=== PATIENT | male | born 1970 | race Caucasian/White ===

== ENCOUNTER 2021-02-01 15:09 | Observation (INO) | payer OTHER ==
[2021-02-01] MEDS ORDERED: SODIUM CHLORIDE 0.9% 500 ML 500 ML IV STA (15:28)
--- NOTE | 2021-02-01 15:38 | ED ---
General Adult HPI - General Source: patient, EMS, RN notes reviewed, old records reviewed Mode of arrival: EMS Limitations: no limitations - History of Present Illness -: hour(s) (21) Location: right, upper extremity Radiation: non-radiation Severity scale (1-10): 0 Consistency: constant Improves with: none Worsens with: none Associated Symptoms: denies other symptoms Treatments Prior to Arrival: none <Kaiser Hong - Last Filed: 02/01/21 23:25> <Connie Simpson - Last Filed: 02/04/21 00:07> - General Chief complaint: Weakness Stated complaint: Weakness Time Seen by Provider: 02/01/21 15:20 - History of Present Illness Initial comments: This is a well-appearing 50-year-old male, alert and oriented 4, presents to the emergency room from [facility] with complaints of right arm weakness that started last night at around 6 PM during dinner. Patient states that he is d ifficulty picking up a cup and holding it. He feels weaker on the right arm. He states that yesterday he was trying to speak and felt his speech was slurred. That has resolved. He denies any leg weakness or recent falls. He states that he has no headache, nausea vomiting, chest pain or difficulty in breathing. He states that he is at [facility] for alcohol abuse. States drinks a fifth a d ay of fireball or Yagermeister. Patient states he does smoke a pack of cigarettes a day as well. Denies any drug use , does state occasional marijuana use. (Kaiser Hong) - Related Data Home Medications Medication Instructions Recorded Confirmed Acetaminophen [Tylenol 8 Hour] 650 mg PO Q4H PRN 02/01/21 02/01/21 Mag Hydrox/Aluminum Hyd/Simeth 30 ml PO Q4H PRN 02/01/21 02/01/21 [Mylanta Maximum Strength Liq] cloNIDine HCL [Catapres] 0.1 - 0.3 mg PO Q4H PRN 02/01/21 02/01/21 Previous Rx's Medication Instructions Recorded Aspirin 81 mg PO DAILY #30 tab 02/03/21 Atorvastatin [Lipitor] 80 mg PO HS #30 tab 02/03/21 Clopidogrel [Plavix] 75 mg PO DAILY #30 tab 02/03/21 Gabapentin [Neurontin] 100 mg PO TID #90 cap 02/03/21 amLODIPine [Norvasc] 10 mg PO HS #30 tab 02/03/21 lisinopriL 20 mg PO BID #60 tab 02/03/21 predniSONE [Deltasone] 20 mg PO DIRECTED #24 tab 02/03/21 Allergies Allergy/AdvReac Type Severity Reaction Status Date / Time No Known Allergies Allergy Verified 02/01/21 17:49 Review of Systems ROS Other: All systems not noted in ROS Statement are negative. <Kaiser Hong - Last Filed: 02/01/21 23:25> ROS Other: All systems not noted in ROS Statement are negative. <Connie Simpson - Last Filed: 02/04/21 00:07> ROS Statement: Those systems with pertinent positive or pertinent negative responses have been documented in the HPI. Past Medical History Past Medical History: Hypertension History of Any Multi-Drug Resistant Organisms: None Reported Additional Past Surgical History / Comment(s): Left bicep surgery Past Psychological History: No Psychological Hx Reported Smoking Status: Current every day smoker Past Alcohol Use History: Abuse Past Drug Use History: Marijuana <Kaiser Hong - Last Filed: 02/01/21 23:25> General Exam Limitations: no limitations General appearance: alert, in no apparent distress Head exam: Present: atraumatic, normocephalic, normal inspection Eye exam: Present: normal appearance, PERRL, EOMI. Absent: scleral icterus, conjunctival injection, nystagmus, periorbital swelling, periorbital tenderness Pupils: Present: normal accommodation ENT exam: Present: normal exam, normal oropharynx, mucous membranes moist Neck exam: Present: normal inspection, full ROM. Absent: tenderness, meningismus, lymphadenopathy Respiratory exam: Present: normal lung sounds bilaterally. Absent: respiratory distress, wheezes, rales, rhonchi, stridor, chest wall tenderness, accessory muscle use, decreased breath sounds, prolonged expiratory Cardiovascular Exam: Present: regular rate, normal heart sounds. Absent: JVD GI/Abdominal exam: Present: soft, normal bowel sounds. Absent: distended, tenderness, guarding, rebound, rigid Back exam: Present: normal inspection, full ROM. Absent: tenderness, CVA tenderness (R), CVA tenderness (L), muscle spasm, paraspinal tenderness, vertebral tenderness, rash noted Neurological exam: Present: alert, oriented X3, CN II-XII intact Expanded Patient oriented to: Present: person, place, time Speech: Present: fluid speech Cranial nerves: EOM's Intact: Normal, Gag Reflex: Normal, Tongue Deviation: Normal Cerebellar function: Finger to Nose: Normal, Heel to Gloria: Normal Motor strength exam: RUE: 4, LUE: 5, RLE: 5, LLE: 5 Eye Response: (4) open spontaneously Motor Response: (6) obeys commands Verbal Response: (5) oriented [place] Total: 15 Psychiatric exam: Present: normal affect, normal mood Skin exam: Present: warm, dry, intact, normal color. Absent: rash, cyanosis, diaphoretic, pallor <Kaiser Hong - Last Filed: 02/01/21 23:25> Course Vital Signs 02/01/21 02/01/21 02/01/21 15:13 18:56 19:01 Temperature 97.7 F 97.7 F Pulse Rate 93 69 69 Respiratory 18 18 18 Rate Blood Pressure 143/91 153/98 153/98 O2 Sat by Pulse 97 97 97 Oximetry EKG Findings - EKG Results: EKG: sinus rhythm (Ventricular rate of 72, FL interval 0.168, QRS 0.82, QTC 0.431) <Kaiser Hnog - Last Filed: 02/01/21 23:25> Medical Decision Making - Lab Data Result diagrams: 02/01/21 15:40 02/01/21 16:40 <Kaiser Hong - Last Filed: 02/01/21 23:25> - Lab Data Result diagrams: 02/03/21 06:29 02/03/21 06:29 <Connie Simpson - Last Filed: 02/04/21 00:07> - Medical Decision Making This is a 50-year-old male patient presents to the emergency room with right arm weakness since 6:00 last night. Patient states that he was trying to hold a cup and dropped it. Patient states at that time he felt like his speech was slurred. He did not come to the hospital at that time. His symptoms have seemed to improve and his speech is clear. He is at [facility] for alcohol withdrawal and has been 12 days without a drink. He denies any history of seizures. 45 strength in the right arm focal neurological deficits. CT of the brain shows no acute intracranial hemorrhage, mass effect or midline shift noted. Chest x-ray shows mild cardiomegaly with no acute pulmonary process. There is a 7 mm hyperdense suspected calcified left mid lung nodule are benign granuloma. Patient will be admitted for TIA. Case discussed with Dr. Simpson (Kaiser Hong) I was available for consultation in the emergency department. The history and physical exam were done by the midlevel provider. I was consulted for this patients care. I reviewed the case with the midlevel provider and based on their presentation of the patient, I agree with the assessment, medical decision making and plan of care as documented. Chart was dictated using [employer] dictation software. Attempts were made to correct any dictation errors however some typographical errors may persist. (Connie Simpson) - Lab Data Lab Results 02/01/21 02/01/21 02/01/21 Range/Units 15:40 15:40 15:40 WBC 8.5 (3.8-10.6) k/uL RBC 5.02 (4.30-5.90) m/uL Hgb 14.8 (13.0-17.5) gm/dL Hct 46.2 (39.0-53.0) % MCV 91.9 (80.0-100.0) fL MCH 29.5 (25.0-35.0) pg MCHC 32.1 (31.0-37.0) g/dL RDW 13.7 (11.5-15.5) % Plt Count 270 (150-450) k/uL MPV 9.5 Absolute Nucleated RBC (0.00-0.00) X 10*3/uL Neutrophils % 71 % Lymphocytes % 19 % Monocytes % 5 % Eosinophils % 3 % Basophils % 1 % Neutrophils # 6.0 (1.3-7.7) k/uL Lymphocytes # 1.6 (1.0-4.8) k/uL Monocytes # 0.4 (0-1.0) k/uL Eosinophils # 0.2 (0-0.7) k/uL Basophils # 0.1 (0-0.2) k/uL NRBC/100 WBC Diff (0.0-0.0) /100 WBCS PT 11.0 (9.0-12.0) sec INR 1.0 (<1.2) APTT 23.8 (22.0-30.0) sec Sodium (137-145) mmol/L Potassium (3.5-5.1) mmol/L Chloride (98-107) mmol/L Carbon Dioxide (22-30) mmol/L Anion Gap mmol/L BUN (9-20) mg/dL Creatinine (0.66-1.25) mg/dL Est GFR (CKD-EPI)AfAm (>60 ml/min/1.73 sqM) Est GFR (CKD-EPI)NonAf (>60 ml/min/1.73 sqM) BUN/Creatinine Ratio (12.00-20.00) Ratio Glucose (74-99) mg/dL Estimated Ave Glu mg/dL Hemoglobin A1c (4.0-6.0) % Plasma Lactic Acid Tawanda (0.7-2.0) mmol/L Calcium (8.4-10.2) mg/dL Magnesium (1.6-2.3) mg/dL Total Bilirubin (0.2-1.3) mg/dL AST (17-59) U/L ALT (4-49) U/L Alkaline Phosphatase (38-126) U/L Troponin I (0.000-0.034) ng/mL Total Protein (6.3-8.2) g/dL Albumin (3.5-5.0) g/dL Globulin g/dL Albumin/Globulin Ratio Triglycerides (0.00-149.00) mg/dL Cholesterol (0.00-200.00) mg/dL LDL Cholesterol, Calc (0.0-131.0) mg/dL VLDL Cholesterol, Calc (5.00-40.00) mg/dL HDL Cholesterol (40.00-60.00) mg/dL Cholesterol/HDL Ratio Ratio TSH (0.350-5.500) uIU/mL Urine Color Yellow Urine Appearance Clear (Clear) Urine pH 5.5 (5.0-8.0) Ur Specific [place] 1.022 (1.001-1.035) Urine Protein Negative (Negative) Urine Glucose (UA) Negative (Negative) Urine Ketones Trace H (Negative) Urine Blood Negative (Negative) Urine Nitrite Negative (Negative) Urine Bilirubin Negative (Negative) Urine Urobilinogen <2.0 (<2.0) mg/dL Ur Leukocyte Esterase Negative (Negative) Coronavirus (PCR) (Not Detectd) 02/01/21 02/01/21 02/01/21 Range/Units 15:40 15:40 16:40 WBC (3.8-10.6) k/uL RBC (4.30-5.90) m/uL Hgb (13.0-17.5) gm/dL Hct (39.0-53.0) % MCV (80.0-100.0) fL MCH (25.0-35.0) pg MCHC (31.0-37.0) g/dL RDW (11.5-15.5) % Plt Count (150-450) k/uL MPV Absolute Nucleated RBC (0.00-0.00) X 10*3/uL Neutrophils % % Lymphocytes % % Monocytes % % Eosinophils % % Basophils % % Neutrophils # (1.3-7.7) k/uL Lymphocytes # (1.0-4.8) k/uL Monocytes # (0-1.0) k/uL Eosinophils # (0-0.7) k/uL Basophils # (0-0.2) k/uL NRBC/100 WBC Diff (0.0-0.0) /100 WBCS PT (9.0-12.0) sec INR (<1.2) APTT (22.0-30.0) sec Sodium 137 (137-145) mmol/L Potassium 5.4 H (3.5-5.1) mmol/L Chloride 108 H (98-107) mmol/L Carbon Dioxide 22 (22-30) mmol/L Anion Gap 7 mmol/L BUN 14 (9-20) mg/dL Creatinine 0.76 (0.66-1.25) mg/dL Est GFR (CKD-EPI)AfAm >90 (>60 ml/min/1.73 sqM) Est GFR (CKD-EPI)NonAf >90 (>60 ml/min/1.73 sqM) BUN/Creatinine Ratio (12.00-20.00) Ratio Glucose 85 (74-99) mg/dL Estimated Ave Glu mg/dL Hemoglobin A1c (4.0-6.0) % Plasma Lactic Acid Tawanda 0.9 (0.7-2.0) mmol/L Calcium 9.3 (8.4-10.2) mg/dL Magnesium 2.2 (1.6-2.3) mg/dL Total Bilirubin 0.6 (0.2-1.3) mg/dL AST 42 (17-59) U/L ALT 22 (4-49) U/L Alkaline Phosphatase 68 (38-126) U/L Troponin I 0.015 (0.000-0.034) ng/mL Total Protein 7.3 (6.3-8.2) g/dL Albumin 4.3 (3.5-5.0) g/dL Globulin g/dL Albumin/Globulin Ratio Triglycerides (0.00-149.00) mg/dL Cholesterol (0.00-200.00) mg/dL LDL Cholesterol, Calc (0.0-131.0) mg/dL VLDL Cholesterol, Calc (5.00-40.00) mg/dL HDL Cholesterol (40.00-60.00) mg/dL Cholesterol/HDL Ratio Ratio TSH (0.350-5.500) uIU/mL Urine Color Urine Appearance (Clear) Urine pH (5.0-8.0) Ur Specific [place] (1.001-1.035) Urine Protein (Negative) Urine Glucose (UA) (Negative) Urine Ketones (Negative) Urine Blood (Negative) Urine Nitrite (Negative) Urine Bilirubin (Negative) Urine Urobilinogen (<2.0) mg/dL Ur Leukocyte Esterase (Negative) Coronavirus (PCR) (Not Detectd) 02/01/21 02/01/21 02/01/21 Range/Units 18:18 18:34 21:46 WBC (3.8-10.6) k/uL RBC (4.30-5.90) m/uL Hgb (13.0-17.5) gm/dL Hct (39.0-53.0) % MCV (80.0-100.0) fL MCH (25.0-35.0) pg MCHC (31.0-37.0) g/dL RDW (11.5-15.5) % Plt Count (150-450) k/uL MPV Absolute Nucleated RBC (0.00-0.00) X 10*3/uL Neutrophils % % Lymphocytes % % Monocytes % % Eosinophils % % Basophils % % Neutrophils # (1.3-7.7) k/uL Lymphocytes # (1.0-4.8) k/uL Monocytes # (0-1.0) k/uL Eosinophils # (0-0.7) k/uL Basophils # (0-0.2) k/uL NRBC/100 WBC Diff (0.0-0.0) /100 WBCS PT (9.0-12.0) sec INR (<1.2) APTT (22.0-30.0) sec Sodium 139 (137-145) mmol/L Potassium 4.5 (3.5-5.1) mmol/L Chloride 108 H (98-107) mmol/L Carbon Dioxide 23 (22-30) mmol/L Anion Gap 8 mmol/L BUN 14 (9-20) mg/dL Creatinine 0.90 (0.66-1.25) mg/dL Est GFR (CKD-EPI)AfAm >90 (>60 ml/min/1.73 sqM) Est GFR (CKD-EPI)NonAf >90 (>60 ml/min/1.73 sqM) BUN/Creatinine Ratio (12.00-20.00) Ratio Glucose 93 (74-99) mg/dL Estimated Ave Glu mg/dL Hemoglobin A1c (4.0-6.0) % Plasma Lactic Acid Tawanda (0.7-2.0) mmol/L Calcium 9.7 (8.4-10.2) mg/dL Magnesium (1.6-2.3) mg/dL Total Bilirubin 0.3 (0.2-1.3) mg/dL AST 28 (17-59) U/L ALT 22 (4-49) U/L Alkaline Phosphatase 76 (38-126) U/L Troponin I <0.012 (0.000-0.034) ng/mL Total Protein 6.8 (6.3-8.2) g/dL Albumin 4.1 (3.5-5.0) g/dL Globulin g/dL Albumin/Globulin Ratio Triglycerides (0.00-149.00) mg/dL Cholesterol (0.00-200.00) mg/dL LDL Cholesterol, Calc (0.0-131.0) mg/dL VLDL Cholesterol, Calc (5.00-40.00) mg/dL HDL Cholesterol (40.00-60.00) mg/dL Cholesterol/HDL Ratio Ratio TSH (0.350-5.500) uIU/mL Urine Color Urine Appearance (Clear) Urine pH (5.0-8.0) Ur Specific [place] (1.001-1.035) Urine Protein (Negative) Urine Glucose (UA) (Negative) Urine Ketones (Negative) Urine Blood (Negative) Urine Nitrite (Negative) Urine Bilirubin (Negative) Urine Urobilinogen (<2.0) mg/dL Ur Leukocyte Esterase (Negative) Coronavirus (PCR) Not Detected (Not Detectd) 02/02/21 02/02/21 02/02/21 Range/Units 06:06 06:06 06:06 WBC 6.1 (3.8-10.6) k/uL RBC 5.08 (4.30-5.90) m/uL Hgb 15.2 (13.0-17.5) gm/dL Hct 46.7 (39.0-53.0) % MCV 92.0 (80.0-100.0) fL MCH 30.0 (25.0-35.0) pg MCHC 32.6 (31.0-37.0) g/dL RDW 13.5 (11.5-15.5) % Plt Count 276 (150-450) k/uL MPV 9.2 Absolute Nucleated RBC (0.00-0.00) X 10*3/uL Neutrophils % 60 % Lymphocytes % 26 % Monocytes % 6 % Eosinophils % 4 % Basophils % 1 % Neutrophils # 3.6 (1.3-7.7) k/uL Lymphocytes # 1.6 (1.0-4.8) k/uL Monocytes # 0.4 (0-1.0) k/uL Eosinophils # 0.3 (0-0.7) k/uL Basophils # 0.1 (0-0.2) k/uL NRBC/100 WBC Diff (0.0-0.0) /100 WBCS PT (9.0-12.0) sec INR (<1.2) APTT (22.0-30.0) sec Sodium 140 (137-145) mmol/L Potassium 4.4 (3.5-5.1) mmol/L Chloride 107 (98-107) mmol/L Carbon Dioxide 23 (22-30) mmol/L Anion Gap 10 mmol/L BUN 11 (9-20) mg/dL Creatinine 0.76 (0.66-1.25) mg/dL Est GFR (CKD-EPI)AfAm >90 (>60 ml/min/1.73 sqM) Est GFR (CKD-EPI)NonAf >90 (>60 ml/min/1.73 sqM) BUN/Creatinine Ratio (12.00-20.00) Ratio Glucose 98 (74-99) mg/dL Estimated Ave Glu mg/dL Hemoglobin A1c (4.0-6.0) % Plasma Lactic Acid Tawanda (0.7-2.0) mmol/L Calcium 9.7 (8.4-10.2) mg/dL Magnesium (1.6-2.3) mg/dL Total Bilirubin 0.6 (0.2-1.3) mg/dL AST 29 (17-59) U/L ALT 21 (4-49) U/L Alkaline Phosphatase 74 (38-126) U/L Troponin I <0.012 (0.000-0.034) ng/mL Total Protein 7.1 (6.3-8.2) g/dL Albumin 4.2 (3.5-5.0) g/dL Globulin 2.9 g/dL Albumin/Globulin Ratio 1.4 Triglycerides (0.00-149.00) mg/dL Cholesterol (0.00-200.00) mg/dL LDL Cholesterol, Calc (0.0-131.0) mg/dL VLDL Cholesterol, Calc (5.00-40.00) mg/dL HDL Cholesterol (40.00-60.00) mg/dL Cholesterol/HDL Ratio Ratio TSH (0.350-5.500) uIU/mL Urine Color Urine Appearance (Clear) Urine pH (5.0-8.0) Ur Specific [place] (1.001-1.035) Urine Protein (Negative) Urine Glucose (UA) (Negative) Urine Ketones (Negative) Urine Blood (Negative) Urine Nitrite (Negative) Urine Bilirubin (Negative) Urine Urobilinogen (<2.0) mg/dL Ur Leukocyte Esterase (Negative) Coronavirus (PCR) (Not Detectd) 02/02/21 02/02/21 02/03/21 Range/Units 06:06 06:06 06:29 WBC 7.03 (3.8-10.6) k/uL RBC 5.14 (4.30-5.90) m/uL Hgb 14.7 (13.0-17.5) gm/dL Hct 47.8 (39.0-53.0) % MCV 93.0 (80.0-100.0) fL MCH 28.6 (25.0-35.0) pg MCHC 30.8 L (31.0-37.0) g/dL RDW 13.7 (11.5-15.5) % Plt Count 279 (150-450) k/uL MPV 11.7 Absolute Nucleated RBC 0 (0.00-0.00) X 10*3/uL Neutrophils % % Lymphocytes % % Monocytes % % Eosinophils % % Basophils % % Neutrophils # (1.3-7.7) k/uL Lymphocytes # (1.0-4.8) k/uL Monocytes # (0-1.0) k/uL Eosinophils # (0-0.7) k/uL Basophils # (0-0.2) k/uL NRBC/100 WBC Diff 0 (0.0-0.0) /100 WBCS PT (9.0-12.0) sec INR (<1.2) APTT (22.0-30.0) sec Sodium (137-145) mmol/L Potassium (3.5-5.1) mmol/L Chloride (98-107) mmol/L Carbon Dioxide (22-30) mmol/L Anion Gap mmol/L BUN (9-20) mg/dL Creatinine (0.66-1.25) mg/dL Est GFR (CKD-EPI)AfAm (>60 ml/min/1.73 sqM) Est GFR (CKD-EPI)NonAf (>60 ml/min/1.73 sqM) BUN/Creatinine Ratio (12.00-20.00) Ratio Glucose (74-99) mg/dL Estimated Ave Glu mg/dL 105 Hemoglobin A1c 5.3 (4.0-6.0) % Plasma Lactic Acid Tawanda (0.7-2.0) mmol/L Calcium (8.4-10.2) mg/dL Magnesium (1.6-2.3) mg/dL Total Bilirubin (0.2-1.3) mg/dL AST (17-59) U/L ALT (4-49) U/L Alkaline Phosphatase (38-126) U/L Troponin I (0.000-0.034) ng/mL Total Protein (6.3-8.2) g/dL Albumin (3.5-5.0) g/dL Globulin g/dL Albumin/Globulin Ratio Triglycerides 164.00 H (0.00-149.00) mg/dL Cholesterol 201.00 H (0.00-200.00) mg/dL LDL Cholesterol, Calc 134.6 H (0.0-131.0) mg/dL VLDL Cholesterol, Calc 32.80 (5.00-40.00) mg/dL HDL Cholesterol 33.60 L (40.00-60.00) mg/dL Cholesterol/HDL Ratio 5.98 Ratio TSH 0.807 (0.350-5.500) uIU/mL Urine Color Urine Appearance (Clear) Urine pH (5.0-8.0) Ur Specific [place] (1.001-1.035) Urine Protein (Negative) Urine Glucose (UA) (Negative) Urine Ketones (Negative) Urine Blood (Negative) Urine Nitrite (Negative) Urine Bilirubin (Negative) Urine Urobilinogen (<2.0) mg/dL Ur Leukocyte Esterase (Negative) Coronavirus (PCR) (Not Detectd) 02/03/21 Range/Units 06:29 WBC (3.8-10.6) k/uL RBC (4.30-5.90) m/uL Hgb (13.0-17.5) gm/dL Hct (39.0-53.0) % MCV (80.0-100.0) fL MCH (25.0-35.0) pg MCHC (31.0-37.0) g/dL RDW (11.5-15.5) % Plt Count (150-450) k/uL MPV Absolute Nucleated RBC (0.00-0.00) X 10*3/uL Neutrophils % % Lymphocytes % % Monocytes % % Eosinophils % % Basophils % % Neutrophils # (1.3-7.7) k/uL Lymphocytes # (1.0-4.8) k/uL Monocytes # (0-1.0) k/uL Eosinophils # (0-0.7) k/uL Basophils # (0-0.2) k/uL NRBC/100 WBC Diff (0.0-0.0) /100 WBCS PT (9.0-12.0) sec INR (<1.2) APTT (22.0-30.0) sec Sodium 140 (137-145) mmol/L Potassium 4.8 (3.5-5.1) mmol/L Chloride 103 (98-107) mmol/L Carbon Dioxide 23.8 (22-30) mmol/L Anion Gap 12.90 mmol/L BUN 12.2 (9-20) mg/dL Creatinine 0.9 (0.66-1.25) mg/dL Est GFR (CKD-EPI)AfAm 119.2 (>60 ml/min/1.73 sqM) Est GFR (CKD-EPI)NonAf 102.8 (>60 ml/min/1.73 sqM) BUN/Creatinine Ratio 14.29 (12.00-20.00) Ratio Glucose 89 (74-99) mg/dL Estimated Ave Glu mg/dL Hemoglobin A1c (4.0-6.0) % Plasma Lactic Acid Tawanda (0.7-2.0) mmol/L Calcium 9.8 (8.4-10.2) mg/dL Magnesium (1.6-2.3) mg/dL Total Bilirubin (0.2-1.3) mg/dL AST (17-59) U/L ALT (4-49) U/L Alkaline Phosphatase (38-126) U/L Troponin I (0.000-0.034) ng/mL Total Protein (6.3-8.2) g/dL Albumin (3.5-5.0) g/dL Globulin g/dL Albumin/Globulin Ratio Triglycerides (0.00-149.00) mg/dL Cholesterol (0.00-200.00) mg/dL LDL Cholesterol, Calc (0.0-131.0) mg/dL VLDL Cholesterol, Calc (5.00-40.00) mg/dL HDL Cholesterol (40.00-60.00) mg/dL Cholesterol/HDL Ratio Ratio TSH (0.350-5.500) uIU/mL Urine Color Urine Appearance (Clear) Urine pH (5.0-8.0) Ur Specific [place] (1.001-1.035) Urine Protein (Negative) Urine Glucose (UA) (Negative) Urine Ketones (Negative) Urine Blood (Negative) Urine Nitrite (Negative) Urine Bilirubin (Negative) Urine Urobilinogen (<2.0) mg/dL Ur Leukocyte Esterase (Negative) Coronavirus (PCR) (Not Detectd) Disposition Decision Date: 02/01/21 Decision Time: 17:27 <Kaiser Hong - Last Filed: 02/01/21 23:25> <Connie Simpson - Last Filed: 02/04/21 00:07> Clinical Impression: TIA (transient ischemic attack) Disposition: ADMITTED IP TO THIS HOSP
[2021-02-01 16:24] LABS: Basophils # (A) 0.1 k/uL (0-0.2); Basophils % (A) 1 %; Eosinophils # (A) 0.2 k/uL (0-0.7); Eosinophils % (A) 3 %; HCT 46.2 % (39.0-53.0); HGB 14.8 gm/dL (13.0-17.5); Lymphocytes # (A) 1.6 k/uL (1.0-4.8); Lymphocytes % (A) 19 %; MCH 29.5 pg (25.0-35.0); MCHC 32.1 g/dL (31.0-37.0); MCV 91.9 fL (80.0-100.0); Mean Platelet Volume 9.5; Monocytes # (A) 0.4 k/uL (0-1.0); Monocytes % (A) 5 %; Neutrophils % (A) 71 %; Platelet Count 270 k/uL (150-450); RBC 5.02 m/uL (4.30-5.90); RDW 13.7 % (11.5-15.5); WBC 8.5 k/uL (3.8-10.6)
--- NOTE | 2021-02-01 16:24 | XR ---
EXAMINATION TYPE: XR chest 2V DATE OF EXAM: 02/01/2021 COMPARISON: NONE HISTORY: Weakness. TECHNIQUE: Frontal and lateral views of the chest are obtained. FINDINGS: There is mild chronic parenchymal changes thought present without suspicious focal air spa ce opacity, pleural effusion, or pneumothorax seen. There is 7 mm hyperdense suspected calcified lef t mid lung nodule or benign granuloma in the lingula . The cardiac silhouette size is mildly enlarged . The osseous structures are intact. IMPRESSION: Mild cardiomegaly without acute pulmonary process.
--- NOTE | 2021-02-01 16:32 | CT ---
EXAMINATION TYPE: CT brain wo con DATE OF EXAM: 02/01/2021 COMPARISON: None. HISTORY: Right sided arm weakness and speech disturbance. CT DLP: 1173.4 mGycm. Automated Exposure Control for Dose Reduction was Utilized. TECHNIQUE: CT scan of the head is performed without contrast. FINDINGS: There is no acute intracranial hemorrhage, mass effect, or midline shift identified. The ventricles and sulci are within normal limits in size. Lerma-white matter differentiation fairly wel l-maintained. Mild mucosal thickening involving ethmoid sinuses bilaterally. Globes are intact bilate rally. IMPRESSION: No acute intracranial hemorrhage or midline shift is seen.
[2021-02-01 16:50] LABS: Partial Thromboplastin Time 23.8 sec (22.0-30.0)
[2021-02-01 17:07] LABS: Appearance,Urine Clear (Clear); Bilirubin,Urine Negative (Negative); Blood,Urine Negative (Negative); Color,Urine Yellow; Glucose,Urine (UA) Negative (Negative); Ketones,Urine Trace (Negative); Leukocyte Esterase,Urine Negative (Negative); Nitrite,Urine Negative (Negative); PH, Urine 5.5 (5.0-8.0); Protein,Urine Negative (Negative); Specific Gravity,Urine 1.022 (1.001-1.035); Urobilinogen,Urine <2.0 mg/dL (<2.0)
[2021-02-01 17:10] LABS: ALT 22 U/L (4-49); AST 42 U/L (17-59); African American GFR (CKD) >90 (>60 ml/min/1.73 sqM); Albumin 4.3 g/dL (3.5-5.0); Alkaline Phosphatase 68 U/L (38-126); Anion Gap 7 mmol/L; Blood Urea Nitrogen 14 mg/dL (9-20); Calcium 9.3 mg/dL (8.4-10.2); Carbon Dioxide 22 mmol/L (22-30); Chloride 108 mmol/L (98-107); Glucose 85 mg/dL (74-99); Magnesium 2.2 mg/dL (1.6-2.3); Non-African American GFR(CKD) >90 (>60 ml/min/1.73 sqM); Sodium 137 mmol/L (137-145); Total Bilirubin 0.6 mg/dL (0.2-1.3); Total Protein 7.3 g/dL (6.3-8.2)
[2021-02-01 17:16] LABS: Potassium 5.4 mmol/L (3.5-5.1)
[2021-02-01] MEDS ORDERED: NALOXONE 0.4 MG/ML 1 ML VIAL IV PRN (17:27)
--- NOTE | 2021-02-01 17:41 | P.HPIM ---
History of Present Illness H&P Date: 02/01/21 Chief Complaint: Right upper extremity weakness This is a 50-year-old white male who was brought in to the hospital from [place] complains of right arm weakness that started around 6 PM. He denies any dizziness, no numbness, no headache no double vision no blurry vision Selene or other symptoms. At the time of examination patient symptoms resolved. He states he has not had symptoms since it happened last night. He is not a very good historian, he is at alcohol rehab program. He states that he has history of spinal stenoses and had steroid injections last month. Review of Systems 10 systems reviewed, pertinent positive and negative findings as in HPI. No chest pain, no abdominal pain, no weakness Past Medical History Past Medical History: Hypertension History of Any Multi-Drug Resistant Organisms: None Reported Additional Past Surgical History / Comment(s): Left bicep surgery Past Psychological History: No Psychological Hx Reported Smoking Status: Current every day smoker Past Alcohol Use History: Abuse Past Drug Use History: Marijuana Medications and Allergies Allergies Allergy/AdvReac Type Severity Reaction Status Date / Time No Known Allergies Allergy Verified 02/01/21 15:18 Physical Exam Vitals: Vital Signs Temp Pulse Resp BP Pulse Ox 02/01/21 15:13 97.7 F 93 18 143/91 97 Intake and Output 02/01/21 02/01/21 02/01/21 06:59 14:59 22:59 Other: Weight 108.862 kg Constitutional: No acute distress, conversant, pleasant Eyes: Anicteric sclerae, moist conjunctiva, no lid-lag, PERRLA ENMT: NC/AT,Oropharynx clear, no erythema, exudates Neck:Supple, FROM, no masses, or JVD, No carotid bruits; No thyromegaly Lungs: Clear to auscultation, Clear to percussion, Normal respiratory effort, no accessory muscle use Cardiovascular: Heart regular in rate and rhythm, No murmurs, gallops, or rubs no peripheral edema Abdominal: Soft Nontender, non distended, no guarding, no rebound or rigidity, Normoactive bowel sounds No hepatomegaly, No splenomegaly, No palpable mass No abdominal wall hernia noted Skin: Normal temperature, tone, texture, turgor, No induration No subcutaneous nodules, No rash, lesions, No ulcers Extremities:No digital cyanosis No clubbing, Pedal pulses intact and symmetrical Radial pulses intact and symmetrical Normal gait and station, No calf tenderness Psychiatric: Alert and oriented to person, place and time, Appropriate affect Intact judgement Neuro: Muscles Strength 5/5 in all 4 extremities, Sensation to light touch grossly present throughout, Cranial nerves II-XII grossly intact. No focal sensory deficits, no focal weakness Results CBC & Chem 7: 02/01/21 15:40 02/01/21 16:40 Labs: Abnormal Lab Results - Last 24 Hours (Table) 02/01/21 02/01/21 Range/Units 15:40 16:40 Potassium 5.4 H (3.5-5.1) mmol/L Chloride 108 H (98-107) mmol/L Urine Ketones Trace H (Negative) Assessment and Plan Plan: 1. Transient right upper extremity weakness at the alcohol rehab facility: Resolved, brain CT negative for acute findings. Obtain brain MRI Neurology consultation. 2. History of cervical stenoses: Supportive care, obtain cervical spinal MRI 3. Obesity OK 37.6, supportive care 4. History of alcohol abuse/dependence: He has been sober at the rehab facility for the past 10 days 5. Mild hyperkalemia: Potassium 5.4, recheck and monitor DVT: SCDs Disposition: Back to alcohol rehab in 1-2 days pending clinical progression
[2021-02-01] MEDS ORDERED: LORazepam 2 MG/ML INJ IV PRN ×3 (17:49)
[2021-02-01] MEDS ORDERED: THIAMINE 100 MG/ML 2 ML VIAL IM STA (17:49)
[2021-02-01] MEDS ORDERED: IBUPROFEN 600 MG TAB PO STA (18:38)
[2021-02-01] MEDS: ACETAMINOPHEN TAB 325 MG TAB PO PRN (18:43)
[2021-02-01] MEDS ORDERED: hydrALAZINE HCL 25 MG TAB PO STA (21:52)
[2021-02-01] MEDS ORDERED: traZODone HCL 50 MG TAB PO PRN (21:52)
[2021-02-02 06:36] LABS: Basophils # (A) 0.1 k/uL (0-0.2); Basophils % (A) 1 %; Eosinophils # (A) 0.3 k/uL (0-0.7); Eosinophils % (A) 4 %; HCT 46.7 % (39.0-53.0); HGB 15.2 gm/dL (13.0-17.5); Lymphocytes # (A) 1.6 k/uL (1.0-4.8); Lymphocytes % (A) 26 %; MCHC 32.6 g/dL (31.0-37.0); Mean Platelet Volume 9.2; Monocytes # (A) 0.4 k/uL (0-1.0); Monocytes % (A) 6 %; Neutrophils # (A) 3.6 k/uL (1.3-7.7); Neutrophils % (A) 60 %; Platelet Count 276 k/uL (150-450); RBC 5.08 m/uL (4.30-5.90); RDW 13.5 % (11.5-15.5); WBC 6.1 k/uL (3.8-10.6)
[2021-02-02 06:44] LABS: ALT 22 U/L (4-49); African American GFR (CKD) >90 (>60 ml/min/1.73 sqM); Albumin 4.1 g/dL (3.5-5.0); Alkaline Phosphatase 76 U/L (38-126); Anion Gap 8 mmol/L; Calcium 9.7 mg/dL (8.4-10.2); Carbon Dioxide 23 mmol/L (22-30); Chloride 108 mmol/L (98-107); Non-African American GFR(CKD) >90 (>60 ml/min/1.73 sqM); Potassium 4.5 mmol/L (3.5-5.1); Sodium 139 mmol/L (137-145); Total Protein 6.8 g/dL (6.3-8.2)
[2021-02-02 06:46] LABS: AST 28 U/L (17-59); Blood Urea Nitrogen 14 mg/dL (9-20); Glucose 93 mg/dL (74-99); Total Bilirubin 0.3 mg/dL (0.2-1.3)
[2021-02-02 07:00] LABS: ALT 21 U/L (4-49); AST 29 U/L (17-59); African American GFR (CKD) >90 (>60 ml/min/1.73 sqM); Albumin 4.2 g/dL (3.5-5.0); Albumin/Globulin Ratio 1.4; Alkaline Phosphatase 74 U/L (38-126); Anion Gap 10 mmol/L; Blood Urea Nitrogen 11 mg/dL (9-20); Calcium 9.7 mg/dL (8.4-10.2); Carbon Dioxide 23 mmol/L (22-30); Chloride 107 mmol/L (98-107); Globulin 2.9 g/dL; Glucose 98 mg/dL (74-99); Non-African American GFR(CKD) >90 (>60 ml/min/1.73 sqM); Potassium 4.4 mmol/L (3.5-5.1); Sodium 140 mmol/L (137-145); Total Bilirubin 0.6 mg/dL (0.2-1.3); Total Protein 7.1 g/dL (6.3-8.2)
[2021-02-02] MEDS: THIAMINE 100 MG TAB PO SCH ×2 (07:12→17:04)
[2021-02-02] MEDS: ACETAMINOPHEN TAB 325 MG TAB PO PRN (07:12)
[2021-02-02] MEDS ORDERED: oxyCODONE-APAP 5-325MG 1 EACH TAB PO PRN ×2 (11:27→11:28)
--- NOTE | 2021-02-02 13:10 | P.CNNES ---
History of Present Illness Consult date: 02/02/21 Requesting physician: [facility] Hong Reason for Consult: TIA History of Present Illness: This is a 50-year-old gentleman with medical history of hypertension for past 15 years, medication non-compliance, chronic neck pain and lower back pain, tobacco use and alcohol use who presented emergency department on 02/01/2021 from [place] with the complaint of right arm weakness that started 6 PM on 01/31/2021. She stated that he was having difficulty picking up cup and holding it. He notified to the ED team that he was slurred but denied that to me. Denies any weakness in the lower extremities. He denies of any headache. He denies of any visual disturbance. Denies of any neck pain. He continues to have weakness over the right arm. He denies of any numbness or tingling. He denies of any history of stroke. He states that he follows up with the patient spell she'll list over at [facility] and he got a pain injection to the neck since she was having left neck pain that was radiating down to the hand and was told he had the pinched nerve over the C6. He stated that he has an EMG with nerve conduction study of the upper extremity on 02/13/2021 over [facility]. He states that he has history of high hypertension for the last 15 years and never controlled he says that the heat the he does not have a regular primary care physician since he states no one is accepting new patients. Regarding his blood pressure medication he states that he gets a month supply and he runs out and he has no medication for a while. He has not any antiplatelets or statins. Has chronic lower back pain but for the last 1 month she has right hip pain that radiates down the leg. Of note patient stated that that he is over [facility] since he drinks a 1/5th daily. He does smoke a pack of cigarettes daily. Denies any illicit drug use. Occasionally uses marijuana. Some of the workup in the hospital consisted of: Initial vitals: Pressure of 143/91, heart rate of 93, respiratory of 18, temperature of 97.7 per hour oral and pulse ox of 97% room air. CBC with differential is unremarkable. Initial serum glucose is 85, sodium is 137, creatinine is 0.76, AST of 42 and ALT of 22, magnesium is 2.2, calcium is 9.3. Perez virus PCR was not detected. CT of the head is reported as no acute intracranial hemorrhage or midline shift is seen. I personally reviewed the CT of the head and there is no evidence of acute or subacute ischemia or no intra-parenchyma hemorrhage that is appreciable. Review of Systems Review of system: The 12 point system was reviewed and apparent positive and negative per HPI. Past Medical History Past Medical History: Hypertension History of Any Multi-Drug Resistant Organisms: None Reported Additional Past Surgical History / Comment(s): Left bicep surgery Past Anesthesia/Blood Transfusion Reactions: No Reported Reaction Past Psychological History: No Psychological Hx Reported Smoking Status: Current every day smoker Past Alcohol Use History: Abuse Past Drug Use History: Marijuana Medications and Allergies Home Medications Medication Instructions Recorded Confirmed Type Acetaminophen [Tylenol 8 Hour] 650 mg PO Q4H PRN 02/01/21 02/01/21 History Calcium,Magnesium,Zinc W/D3 1 tab PO TID PRN 02/01/21 02/01/21 History Ibuprofen [Motrin Ib] 600 mg PO Q8H PRN 02/01/21 02/01/21 History Mag Hydrox/Aluminum Hyd/Simeth 30 ml PO Q4H PRN 02/01/21 02/01/21 History [Mylanta Maximum Strength Liq] amLODIPine [Norvasc] 5 mg PO HS 02/01/21 02/01/21 History cloNIDine HCL [Catapres] 0.1 - 0.3 mg PO Q4H PRN 02/01/21 02/01/21 History lisinopriL 20 mg PO DAILY 02/01/21 02/01/21 History traZODone HCL 50 - 150 mg PO HS PRN 02/01/21 02/01/21 History Allergies Allergy/AdvReac Type Severity Reaction Status Date / Time No Known Allergies Allergy Verified 02/01/21 17:49 Physical Examination - Vital Signs Vital Signs: Vital Signs Temp Pulse Pulse Resp BP BP Pulse Ox 02/02/21 07:00 97.7 F 69 18 149/100 98 02/02/21 02:00 17 02/02/21 01:02 98.3 F 63 16 136/88 100 02/01/21 20:00 18 02/01/21 19:13 98.0 F 72 18 166/116 97 02/01/21 19:01 97.7 F 69 18 153/98 97 02/01/21 18:56 69 18 153/98 97 02/01/21 15:13 97.7 F 93 18 143/91 97 Intake and Output 02/01/21 02/02/21 02/02/21 22:59 06:59 14:59 Other: # Voids 1 1 Weight 108.862 kg GENERAL: The patient is lying in bed and is in mild acute distress. CHEST: The heart rate is regular rate rhythm. No murmurs to auscultation. No carotid bruit bilaterally. LUNG: Clear to auscultation bilaterally no wheezing noted throughout. Not labored breathing. ABDOMEN/GI: Bowel sounds present in all 4 quadrants. No tenderness to palpation throughout. NEUROLOGICAL: Higher mental function: The patient is awake, alert, oriented to self, place and time. Patient is following commands. No aphasia and no neglect. Cranial nerves: The pupils are round, equal and reactive to light and accommodation. Visual maurice are full to confrontation throughout. Extraocular movement is intact no nystagmus is noted. Facial sensation is normal to touch throughout. The facial strength is flattening over the right. Hearing is normal bilaterally to hand rub. Tongue is midline and moved [id number] without any difficulty. No dysarthria is noted. Shoulder shrug is normal bilaterally. Motor: Gait is antalgic because of right hip pain. The strength is right upper extremity is 4+, right forearm flexion is 5- to 5. Otherwise 5 over 5 throughout. Normal tone and bulk. Cerebellum: Normal finger to nose heel to [place] bilaterally. Sensation: Sensation is normal to touch throughout. Reflexes (right/left): 2+ throughout. Plantars are downgoing bilaterally. Results - Laboratory Findings CBC and BMP: 02/02/21 06:06 02/02/21 06:06 Abnormal Lab Findings: Abnormal Labs 02/01/21 02/01/21 02/01/21 15:40 16:40 18:34 Potassium 5.4 H Chloride 108 H 108 H Urine Ketones Trace H Assessment and Plan Assessment: Acute right upper extremity weakness (on examination continues to have weakness of upper extremity and right nasolabial flattening). Likely due to acute ischemic stroke. Etiology likely his risk factors (uncontrolled HTN for 15 years, tobacco use and significant alcohol use) Uncontrolled hypertension for past 15 years (non-compliant with medications and does not have PCP) Reported C6 radiculopathy and is following-up with pain specialist over at [facility] Chronic lower back pain Right hip pain Tobacco use 1PPD Alcohol use (sober for 10 days and it at rehab facility) Plan: The primary team ordered MRI of the brain, MRA of the head and neck, MRI of the cervical and thoracic spine. From neurological perspective MRI Brain and MRA head and neck is sufficient for now. Started the patient on ASA 81mg daily with loading dose of 325mg once. If MRI confirm stroke will start dual antiplatelets (ASA and Plavix). Started on Lipitor 40mg qhs. Ordered TSH, HbA1c, 2D echo, lipid panel. Continue every 4 hours neuro checks Cardiac monitoring Consulted physical therapy and occupation therapy. Patient was counseled on tobacco and continuing alcohol cessation. He was notified he needs to follow-up with PCP and be compliant taking his medication for his hypertension. We'll defer the rest of the medical management to the primary team. For DVT prophylaxis: Started on subq heparin. Thank you for the consultation. Edwin Min MD Neuro-Hospitalist Time with Patient: Greater than 30
[2021-02-02] MEDS ORDERED: ASPIRIN 325 MG TAB PO STA (13:12)
--- NOTE | 2021-02-02 15:25 | MR ---
EXAMINATION TYPE: MR brain wo con DATE OF EXAM: 02/02/2021 COMPARISON: CT brain from yesterday. HISTORY: Right arm weakness, speech disturbance, history of cervical stenosis TECHNIQUE: Multiplanar, multisequence imaging of the brain and brainstem is performed without IV cont rast. FINDINGS: Diffusion weighted images demonstrate oval area of increased signal on diffusion-weighted images bren uring 9 x 5 mm image 240 series 408 with diminished signal ADC map. There is T2 hyperintensity at thi s level. This extends craniocaudal dimension roughly 1.3 cm coronal image 19 into the posterior later al aspect of the left basal ganglia. The ventricular system and cisternal spaces are normal in size and appearance. The brain volume is a ge appropriate. A few scattered foci of T2 hyperintensity throughout the white matter bilaterally. Midline structures demonstrate normal morphology. Slightly low-lying cerebellar tonsils without great er than 5 mm inferior displacement. Normal vascular flow voids are present. Dominant left vertebral a rtery is filling the basilar artery. Mild to moderate ethmoid mucosal thickening redemonstrated. Glob es are intact bilaterally. IMPRESSION: Evolving acute infarct deep left parietal region at level of knott radiata with inferio r extension to the posterior left lateral aspect of the basal ganglia up to roughly 1.5 cm length. Perfect serve sent to patient ordering physician at time of dictation.
[2021-02-02] MEDS ORDERED: IBUPROFEN 600 MG TAB PO STA (15:28)
--- NOTE | 2021-02-02 15:33 | MR ---
EXAMINATION TYPE: MR angio head wo/neck wo/w con DATE OF EXAM: 02/02/2021 COMPARISON: MR brain same date HISTORY: Right arm weakness, history of cervical stenosis TECHNIQUE: Time of flight images focusing on the [place] were performed without contrast.. 2-D and 3-D postprocessing imaging is performed on an alternate workstation, postcontrast images obta ined through the neck following 11 cc Gadavist IV. FINDINGS: The innominate, left and right common carotid, left proximal left and right subclavian, lef t and right vertebral arteries are patent, left vertebral artery is dominant. 2 super aortic branch v essels. There is no significant stenosis of the proximal internal carotid arteries by NASCET criteria . Anterior and posterior circulation are intact. There is no evident aneurysm, dissection, stenosis, or embolus. IMPRESSION: No significant abnormalities evident
[2021-02-02] MEDS ORDERED: hydrALAZINE HCL 25 MG TAB PO PRN (16:01)
--- NOTE | 2021-02-02 17:02 | P.PN ---
Subjective Progress Note Date: 02/02/21 50 years old gentleman with past medical history significant for hypertension and medication noncompliance chronic neck pain and back pain tobacco use alcohol use who was here at [place] for drug rehab originally from [facility], patient presented on 01/31/2021 with right upper extremity weakness MRI showed stroke. Patient seen and evaluated at bedside, today patient does not report any worsening of his breathing or report any new significant chest pain. Patient remains in no acute distress. Patient questions and concerns addressed at bedside, proper counseling done. Plan discussed with nursing staff. Objective - Vital Signs Vital signs: Vital Signs Temp 98.2 F 02/02/21 15:00 Pulse 75 02/02/21 15:00 Resp 18 02/02/21 15:00 BP 169/109 02/02/21 16:51 Pulse Ox 98 02/02/21 07:00 Intake & Output 02/01/21 02/02/21 02/02/21 18:59 06:59 18:59 Weight 108.862 kg Other: # Voids 1 2 General: non toxic, no acute distress, alert oriented to time place and person Head: atraumatic, normocephalic, symmetric Eyes: no lid lesion], anicteric sclera Mouth: no lip lesion, mucus membranes moist Cardiovascular: S1S2 reg rate and rhythm, no murmur, no gallop Lungs: Bilateral equal air entry, no wheezing no rhonchi no crackles. Abdominal: soft, nontender to palpation, no guarding, no appreciable organomegaly Ext: no gross muscle atrophy, no edema extremities warm to suppose a positive Neuro: Alert oriented to time place and person, RIght UE weakness 3/5 Psych: Mood and affect appropriate, patient not so certain Skin exam: No rashes no jaundice. - Labs CBC & Chem 7: 02/02/21 06:06 02/02/21 06:06 Labs: Abnormal Lab Results - Last 24 Hours (Table) 02/01/21 02/01/21 02/01/21 Range/Units 15:40 16:40 18:34 Potassium 5.4 H (3.5-5.1) mmol/L Chloride 108 H 108 H (98-107) mmol/L Urine Ketones Trace H (Negative) Assessment and Plan Assessment: Acute CVA MRI brain, MRI neck MRA and neck done, it showed acute infarct deep left parietal lesion at level of coronary radiate over the inferior extension to the posterior left lateral aspect of the basal ganglia to roughly 1.5 cm in length. Echocardiogram pending, fasting lipid panel pending hemoglobin A1c pending TSH pending Patient started on aspirin and Plavix and statin Neurology consulted and following Hypertension uncontrolled Permissive hypertension Norvasc Hydralazine when necessary for systolic blood pressure greater than 180. Osteoarthritis with right shoulder and right hip pain Patient is extremely concerned about right hip pain Will check x-ray right hip Tramadol and Neurontin for pain control, patient extremely focused on getting high-dose ibuprofen, discussed that high-dose ibuprofen can damage his kidneys and can cause peptic ulcer disease Orthopedic consulted History of focal abuse and dependence Was sober at rehab facility for the past 10 days Patient on CIWA protocol Anxiety Patient will probably benefit from psychiatric consult and outpatient follow-up DVT prophylaxis: Subcutaneous heparin next CODE STATUS: Full code Discharge plan/next site of care: Back to home in next 1 or 2 days, pending hospital course
[2021-02-02] MEDS: GABAPENTIN 100 MG CAP PO SCH ×2 (17:04→22:54)
--- NOTE | 2021-02-02 18:14 | XR ---
EXAMINATION TYPE: XR shoulder complete RT DATE OF EXAM: 02/02/2021 COMPARISON: NONE HISTORY: Shoulder pain TECHNIQUE: 3 views FINDINGS: The glenohumeral joint is intact. There is some spurring at the AC joint. I see no fracture nor dislocation. IMPRESSION: Negative right shoulder exam. No fracture. Mild spur formation.
--- NOTE | 2021-02-02 19:21 | XR ---
EXAMINATION TYPE: XR Hip RT and AP Pelvis DATE OF EXAM: 02/02/2021 COMPARISON: NONE HISTORY: Hip pain TECHNIQUE: 3 views FINDINGS: Pelvic ring is intact. Proximal femurs and hip joints are intact. There is minor spurring o f the acetabulum. Sacroiliac joints are intact. IMPRESSION: Mild spurring. No fracture. No significant hip joint space narrowing. Normal appearing left hip joint.
[2021-02-02 20:27] LABS: Chol/HDL Ratio 5.98 Ratio; LDL Cholesterol,Calculated 134.6 mg/dL (0.0-131.0)
[2021-02-02] MEDS: HEPARIN SODIUM,PORCINE/PF 5,000 UNIT/0.5 ML SYRINGE SQ SCH (20:32)
[2021-02-02] MEDS ORDERED: amLODIPine 5 MG TAB PO SCH (21:00)
[2021-02-02] MEDS ORDERED: ATORVASTATIN 40 MG TAB PO SCH (21:00)
[2021-02-02] MEDS: traMADol 50 MG TAB PO SCH (22:52)
[2021-02-03] MEDS: ACETAMINOPHEN TAB 325 MG TAB PO PRN ×2 (05:28→11:25)
[2021-02-03] MEDS ORDERED: PANTOPRAZOLE 40 MG TABLET PO SCH (07:30)
[2021-02-03] MEDS: GABAPENTIN 100 MG CAP PO SCH (08:19)
[2021-02-03] MEDS: traMADol 50 MG TAB PO SCH (08:19)
[2021-02-03] MEDS: HEPARIN SODIUM,PORCINE/PF 5,000 UNIT/0.5 ML SYRINGE SQ SCH (08:20)
[2021-02-03] MEDS: THIAMINE 100 MG TAB PO SCH (08:21)
[2021-02-03 08:28] VITALS: TEMP 98.2
--- NOTE | 2021-02-03 08:34 | ECHOF ---
Referral Reason:stroke MEASUREMENTS -------- HEIGHT: 170.2 cm WEIGHT: 108.9 kg BP: 149/100 IVSd: 1.5 cm (0.6 - 1.1) LVIDd: 4.9 cm (3.9 - 5.3) LVPWd: 1.2 cm (0.6 - 1.1) IVSs: 1.7 cm LVIDs: 2.8 cm LVPWs: 2.2 cm LAESV Index (A-L): 26.93 ml/m Ao Diam: 3.4 cm (2.0 - 3.7) AV Cusp: 2.4 cm (1.5 - 2.6) LA Diam: 4.2 cm (2.7 - 3.8) MV E Jhonny: 0.68 m/s MV DecT: 200 ms MV A Jhonny: 0.52 m/s MV E/A Ratio: 1.32 FINDINGS -------- Sinus rhythm. This was a technically difficult study with suboptimal views. The left ventricular size is normal. There is moderate concentric left ventricular hypertrophy. O verall left ventricular systolic function is normal with, an EF between 55 - 60 %. The diastolic fi lling pattern is normal for the age of the patient 8.52. The RV was not well visualized. Normal LA size by volume 22+/-6 ml/m2. The right atrium was not well visualized. 2.0mg of Lumason was utilized for enhancement of images Interatrial and interventricular septum intact. The aortic valve was not well visualized. There is no evidence of aortic regurgitation. There is no evidence of aortic stenosis. The mitral valve was not well visualized. No mitral regurgitation. The tricuspid valve was not well visualized. The pulmonic valve was not well visualized. There is no pulmonic regurgitation present. The aortic root size is normal. IVC Not well visulized. There is no pericardial effusion. CONCLUSIONS -------- 1. The left ventricular size is normal. 2. There is moderate concentric left ventricular hypertrophy. 3. Overall left ventricular systolic function is normal with, an EF between 55 - 60 %. CHIEF CLERK: Columba Merritt [facility]
[2021-02-03] MEDS ORDERED: ATORVASTATIN 80 MG TAB PO STA (08:36)
[2021-02-03] MEDS ORDERED: lisinopriL 10 MG TAB PO SCH (09:00)
[2021-02-03] MEDS ORDERED: ASPIRIN 81 MG PO SCH (09:00)
[2021-02-03] MEDS ORDERED: CLOPIDOGREL 75 MG TAB PO SCH (09:00)
[2021-02-03 11:26] LABS: HCT 47.8 % (39.6-50.0); HGB 14.7 g/dL (13.0-17.0); MCH 28.6 pg (27.0-32.0); MCHC 30.8 g/dL (32.0-37.0); Mean Platelet Volume 11.7 fL (9.5-12.2); Platelet Count 279 X 10*3/uL (140-440); RBC 5.14 X 10*6/uL (4.40-5.60); RDW 13.7 % (11.5-14.5); WBC 7.03 X 10*3/uL (4.50-10.00)
[2021-02-03 11:39] LABS: African American GFR (CKD) 119.2 (60.0-200.0); Anion Gap 12.9 mmol/L (10.00-18.00); BUN/Creat Ratio 14.29 Ratio (12.00-20.00); Blood Urea Nitrogen 12.2 mg/dL (9.0-27.0); Calcium 9.8 mg/dL (8.7-10.3); Carbon Dioxide 23.8 mmol/L (20.0-27.5); Non-African American GFR(CKD) 102.8 (60.0-200.0); Potassium 4.8 mmol/L (3.5-5.5)
--- NOTE | 2021-02-03 12:20 | P.PN ---
Subjective Progress Note Date: 02/03/21 The patient is seen at bedside and feels about the same. Objective - Vital Signs Vital signs: Vital Signs Temp 98.2 F 02/03/21 07:00 Pulse 47 L 02/03/21 07:00 Resp 18 02/03/21 07:00 BP 148/102 02/03/21 07:00 Pulse Ox 94 L 02/03/21 07:00 Intake & Output 02/02/21 02/03/21 02/03/21 18:59 06:59 18:59 Other: Voiding Method Toilet # Voids 2 2 - Exam GENERAL: The patient is lying in bed and is in mild acute distress. NEUROLOGICAL: Higher mental function: The patient is awake, alert, oriented to self, place and time. Patient is following commands. No aphasia and no neglect. Cranial nerves: The pupils are round, equal and reactive to light and accommodation. Visual maurice are full to confrontation throughout. Extraocular movement is intact no nystagmus is noted. Facial sensation is normal to touch throughout. The facial strength is flattening over the right. Hearing is normal bilaterally to hand rub. Tongue is midline and moved [id number] without any difficulty. No dysarthria is noted. Shoulder shrug is normal bilaterally. Motor: Gait is antalgic because of right hip pain. The strength is right upper extremity is 4+, right forearm flexion is 5- to 5. Otherwise 5 over 5 throughout. Normal tone and bulk. Cerebellum: Normal finger to nose heel to [place] bilaterally. Sensation: Sensation is normal to touch throughout. Reflexes (right/left): 2+ throughout. Plantars are downgoing bilaterally. WORK-UP: Knott virus PCR was not detected. Lipid panel is triglyceride 154, cholesterol 201, LDL is 134, HDL 33. TSH is 0.807. Hemoglobin A1c is 5.3. CT of the head is reported as no acute intracranial hemorrhage or midline shift is seen. I personally reviewed the CT of the head and there is no evidence of acute or subacute ischemia or no intra-parenchyma hemorrhage that is appreciable. MRI BRAIN: Reported as involving acute infarct deep left parietal region at the level knott radiata with inferior extension to the posterior left lateral aspect of the basal ganglia up to roughly 1.5 cm length. MRA of the head and neck was reported as no significant abnormality evident. 2D echo: Was reported as left ventricular size is normal. Moderate concentric left ventricular hypertrophy. Ejection fraction of 55-60%. Normal left atrial size by volume. - Labs CBC & Chem 7: 02/03/21 06:29 02/03/21 06:29 Labs: Abnormal Lab Results - Last 24 Hours (Table) 02/02/21 02/03/21 Range/Units 06:06 06:29 MCHC 30.8 L (32.0-37.0) g/dL Triglycerides 164.00 H (0.00-149.00) mg/dL Cholesterol 201.00 H (0.00-200.00) mg/dL LDL Cholesterol, Calc 134.6 H (0.0-131.0) mg/dL HDL Cholesterol 33.60 L (40.00-60.00) mg/dL Assessment and Plan Assessment: * Acute ischemic stroke (deep left parietal region at the level knott radiata with inferior extension to the posterior left lateral aspect of the basal ganglia with symptoms of right upper extremity weakness and has right nasolabial flattening on examination). No IV tpa since outside window. Etiology is small vessel disease likely due to his risk factors (uncontrolled HTN for 15 years, tobacco use and significant alcohol use) * Uncontrolled hypertension for past 15 years (non-compliant with medications and does not have PCP) * Reported C6 radiculopathy and is following-up with pain specialist over at [facility] * Chronic lower back pain * Right hip pain * Tobacco use 1PPD * Alcohol use (sober for 10 days and it at rehab facility) Plan: Continue aspirin 81 mg and started Plavix 75 mg daily for signature prophylaxis. Patient needs to be on dual antiplatelets for 21 days and after 21 days to stop Plavix but continue aspirin indefinitely. Primary team increase the Lipitor fr om 40 to 80 mg daily. Continue every 4 hours neuro checks Cardiac monitoring Consider event monitor for 30 days if possible and if unable to get hooked up today can be done as outpatient. Physical therapy and occupation therapy are consulted Patient was counseled on tobacco and continuing alcohol cessation. He was notified he needs to follow-up with PCP and be compliant taking his medication for his hypertension. We'll defer the rest of the medical management to the primary team. For DVT prophylaxis: On subq heparin. The plan is discussed with the patient and the the primary attending. There is no further neurological workup. Edwin Min MD Neuro-Hospitalist Time with Patient: Less than 30
--- NOTE | 2021-02-03 12:54 | P.CNOR ---
History of Present Illness - [facility] Consult date: 02/03/21 Consult reason: joint pain (Right shoulder and right hip pain) History of present illness: This is a 50-year-old male admitted to internal medicine for CVA workup secondary to complaint of right upper extremity weakness. The patient is currently at [place] [facility] and had severe and sudden onset of right upper extremity pain and weakness. He also complains of right hip pain with numbness and tingling going down the leg to the foot. He reports no recent trauma or injury. He does state that he has chronic right shoulder problems. We are consulted for orthopedic evaluation. Past Medical History Past Medical History: Hypertension History of Any Multi-Drug Resistant Organisms: None Reported Additional Past Surgical History / Comment(s): Left bicep surgery Past Anesthesia/Blood Transfusion Reactions: No Reported Reaction Past Psychological History: No Psychological Hx Reported Smoking Status: Current every day smoker Past Alcohol Use History: Abuse Past Drug Use History: Marijuana Medications and Allergies Home Medications Medication Instructions Recorded Confirmed Type Acetaminophen [Tylenol 8 Hour] 650 mg PO Q4H PRN 02/01/21 02/01/21 History Calcium,Magnesium,Zinc W/D3 1 tab PO TID PRN 02/01/21 02/01/21 History Ibuprofen [Motrin Ib] 600 mg PO Q8H PRN 02/01/21 02/01/21 History Mag Hydrox/Aluminum Hyd/Simeth 30 ml PO Q4H PRN 02/01/21 02/01/21 History [Mylanta Maximum Strength Liq] amLODIPine [Norvasc] 5 mg PO HS 02/01/21 02/01/21 History cloNIDine HCL [Catapres] 0.1 - 0.3 mg PO Q4H PRN 02/01/21 02/01/21 History lisinopriL 20 mg PO DAILY 02/01/21 02/01/21 History traZODone HCL 50 - 150 mg PO HS PRN 02/01/21 02/01/21 History Allergies Allergy/AdvReac Type Severity Reaction Status Date / Time No Known Allergies Allergy Verified 02/01/21 17:49 Physical Examination This is a pleasant 50-year-old male in no acute distress. He is completely dressed and wearing work boots lying in bed. He seems anxious to leave the hospital. Exam of the upper extremities reveals no obvious deformity. He has full forward flexion and abduction of the right shoulder. Full internal rotation without difficulty or pain. No pain with palpation the right shoulder. Exam of the lumbar spine reveals no obvious deformity. There is no tenderness of palpation about the lower lumbar spine or sacrum. Exam the lower extremities reveals full hip motion with no irritability or pain. He is nontender to the greater trochanter. Pain with straight leg raise of the right leg. Pain radiates up the thigh into the buttock. He has full foot and ankle motion with good dorsiflexion of the great toe against resistance. Neurovascular status to the lower extremities grossly intact. Results X-rays of the right shoulder reveal no acute bony abnormality. No fracture noted. Superior subluxation of the humeral head suggestive of chronic rotator cuff pathology. Moderate acromioclavicular joint arthritis. X-rays of the right hip and pelvis reveal no acute bony abnormality. No fracture noted. - Labs Labs: Abnormal Lab Results - Last 24 Hours (Table) 02/02/21 02/03/21 Range/Units 06:06 06:29 MCHC 30.8 L (32.0-37.0) g/dL Triglycerides 164.00 H (0.00-149.00) mg/dL Cholesterol 201.00 H (0.00-200.00) mg/dL LDL Cholesterol, Calc 134.6 H (0.0-131.0) mg/dL HDL Cholesterol 33.60 L (40.00-60.00) mg/dL H & H 02/01/21 02/02/21 02/03/21 Range/Units 15:40 06:06 06:29 Hgb 14.8 15.2 14.7 (13.0-17.5) gm/dL Hct 46.2 46.7 47.8 (39.0-53.0) % Coagulation 02/01/21 Range/Units 15:40 INR 1.0 (<1.2) Result Diagrams: 02/03/21 06:29 02/03/21 06:29 Assessment and Plan (1) Rotator cuff arthropathy of right shoulder Current Visit: Yes Status: Acute Code(s): M12.811 - OTH SPECIFIC ARTHROPATHIES, NEC, RIGHT SHOULDER SNOMED Code(s): 84254750443991051 (2) Right lumbar radiculopathy Current Visit: Yes Status: Acute Code(s): M54.16 - RADICULOPATHY, LUMBAR REGION SNOMED Code(s): 014107221 Plan: The clinical and x-ray findings are discussed with the patient. It is discussed that his symptoms are consistent with right lower extremity radiculopathy. He is currently not concerned with his shoulder pain. It is recommended he be placed on a tapered dose of prednisone. He should follow up in our office upon discharge from [place] with Dr. Marie for his lumbar spine and with orthopedic surgery for the shoulder.
--- NOTE | 2021-02-03 13:36 | P.DS ---
Providers Date of admission: 02/03/21 08:28 Expected date of discharge: 02/03/21 Attending physician: Salvador Machuca MD Consults: 02/01/21 17:29 Consult Physician Routine Consulting Provider: Edwin Min Consult Reason/Comments: TIA Do you want consulting provider notified?: Yes 02/02/21 12:36 Consult Physician Routine Consulting Provider: Dimas Martin Consult Reason/Comments: right hip and shoulder pain, pending d/c Do you want consulting provider notified?: Yes Primary care physician: Stated None Hospital Course: Discharge Diagnosis: Acute Ischemic CVA left Pariatal lobe Lumbar radiculopathy HTN urgancy Dyslipidemia Right shoulder rotator cuff impingement ETOH abuse Tobacco abuse Hospital Course: Patient is a 50-year-old male with a history of high blood pressure noncompliant with medications, alcohol abuse, tobacco abuse who presented from [place] with complaints of right arm weakness. He was started on aspirin and admitted for possible CVA. He was noted to have elevated blood pressures. Neurology was consulted. He underwent MRI brain which demonstrated acute infarct in the left parietal region at the level of the knott radiata with inferior extension to the lateral aspect of the basal ganglia. His hemoglobin A1c came back at less than 6, his total cholesterol came back at 200 with an LDL of 136. He was doing well and was determined stable for discharge. He was also by orthopedic surgery secondary to hip pain. He did undergo an x-ray of his hip which showed no acute process. He was seen by orthopedic surgery who felt he had a right rotator rotator cuff arthropathy as well as right lumbar radiculopathy. They're recommending a tapering dose of prednisone. They also recommended possible's lap Dr. Marie after discharge. Patient plans to return to [place]. He does not plan to see him [place] area after discharge and will return to [place]. I provided him with the number for [facility] for what he thinks clinic to make an appointment. I discussed that it was extremely important for him to follow-up regarding his high blood pressure, high cholesterol, and stroke. I also suggested that he may need an outpatient event monitor. 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 I informed him that this place also has follow-up appointments available. Patient was determined stable for discharge. He was started on aspirin, Plavix, Lipitor, and lisinopril. Additionally he was given a prednisone taper. CT head: No acute process Chest x-ray: Cardiomegaly without acute pulmonary process. CTA head and neck showed no acute significant abnormalities. Echo: EF 55-60%, moderate LVH Patient seen and examined at bedside. Right arm weakness is improved, but still present, no chest pain, no shortness of breath. We had a long jeovany discussion that he needs to follow with PCP, and stop smoking. He need s to take control of his health. Vital signs reviewed and stable. General: non toxic, no distress, appears at stated age Derm: warm, dry Head: atraumatic, normocephalic, symmetric Eyes: EOMI, no lid lag, anicteric sclera Mouth: no lip lesion, mucus membranes moist Cardiovascular: S1S2 reg, no murmur, positive posterior tibial pulse bilateral, Lungs: CTA bilateral, no rhonchi, no rales , no accessory muscle use Abdominal: soft, nontender to palpation, no guarding, no appreciable organomegaly Ext: no gross muscle atrophy, no edema, no contractures Neuro: CN II-XI grossly intact, + weakness with supernation and pronation of right arm, weakness with abduction and adduction of the right arm. Psych: Alert, oriented, appropriate affect A total of 37 minutes of time were spent preparing this complex discharge summary . Plan - Discharge Summary Discharge Rx Participant: No New Discharge Prescriptions: New Atorvastatin [Lipitor] 80 mg PO HS #30 tab Clopidogrel [Plavix] 75 mg PO DAILY #30 tab predniSONE [Deltasone] 20 mg PO DIRECTED #24 tab Aspirin 81 mg PO DAILY #30 tab Gabapentin [Neurontin] 100 mg PO TID #90 cap amLODIPine [Norvasc] 10 mg PO HS #30 tab Continue Mag Hydrox/Aluminum Hyd/Simeth [Mylanta Maximum Strength Liq] 30 ml PO Q4H PRN PRN Reason: Gi Upset cloNIDine HCL [Catapres] 0.1 - 0.3 mg PO Q4H PRN PRN Reason: BP greater than 160/100 Acetaminophen [Tylenol 8 Hour] 650 mg PO Q4H PRN PRN Reason: Pain Or Fever > 100.5 Changed lisinopriL 20 mg PO BID #60 tab Discontinued amLODIPine [Norvasc] 5 mg PO HS traZODone HCL 50 - 150 mg PO HS PRN PRN Reason: sleep Ibuprofen [Motrin Ib] 600 mg PO Q8H PRN PRN Reason: Pain Calcium,Magnesium,Zinc W/D3 1 tab PO TID PRN PRN Reason: cramps Discharge Medication List Acetaminophen [Tylenol 8 Hour] 650 mg PO Q4H PRN 02/01/21 [History] Mag Hydrox/Aluminum Hyd/Simeth [Mylanta Maximum Strength Liq] 30 ml PO Q4H PRN 02/01/21 [History] cloNIDine HCL [Catapres] 0.1 - 0.3 mg PO Q4H PRN 02/01/21 [History] Aspirin 81 mg PO DAILY #30 tab 02/03/21 [Rx] Atorvastatin [Lipitor] 80 mg PO HS #30 tab 02/03/21 [Rx] Clopidogrel [Plavix] 75 mg PO DAILY #30 tab 02/03/21 [Rx] Gabapentin [Neurontin] 100 mg PO TID #90 cap 02/03/21 [Rx] amLODIPine [Norvasc] 10 mg PO HS #30 tab 02/03/21 [Rx] lisinopriL 20 mg PO BID #60 tab 02/03/21 [Rx] predniSONE [Deltasone] 20 mg PO DIRECTED #24 tab 02/03/21 [Rx] Follow up Appointment(s)/Referral(s): None,Stated [Primary Care Provider] - 1-2 days Patient Instructions/Handouts: Ischemic Stroke (DC) Activity/Diet/Wound Care/Special Instructions: Activity: as tolerated Diet: heart healthy Special Instructions: Connor Barajas MD [phone] Specialties: Family Medicine Services: Primary Care, Video Visits medical group [facility] [id number] [place] [address] [email or web address] Discharge Disposition: HOME SELF-CARE
[2021-02-03 15:34] VITALS: BP 144/99; PULSE 67; RESP 16
[2021-02-03] MEDS ORDERED: amLODIPine 10 MG TAB PO SCH (21:00)
[2021-02-03] MEDS ORDERED: ATORVASTATIN 80 MG TAB PO SCH (21:00)
== END 2021-02-03 16:17 ==
LOC: EC 15:09 → 6NMEDSUR 17:49 → OBSVTOIN 02-03 08:28 → INTOOBSV 02-03 08:28 → UNDODISIN 02-03 16:17
PROVIDERS: ADMIT Internal Medicine; ATTEND Internal Medicine
DX: I63.9 Cerebral infarction, unspecified (principal); I11.9 Hypertensive heart disease without heart failure; I16.0 Hypertensive urgency; E87.5 Hyperkalemia; M48.02 Spinal stenosis, cervical region; G89.29 Other chronic pain; M54.16 Radiculopathy, lumbar region; M54.12 Radiculopathy, cervical region; E78.00 Pure hypercholesterolemia, unspecified; M25.551 Pain in right hip; M75.41 Impingement syndrome of right shoulder; M19.011 Primary osteoarthritis, right shoulder; Z91.128 Patient's intentional underdosing of medication regimen for other reason; Z91.14 Patient's other noncompliance with medication regimen; F10.20 Alcohol dependence, uncomplicated; F17.210 Nicotine dependence, cigarettes, uncomplicated; F41.9 Anxiety disorder, unspecified; E66.9 Obesity, unspecified; Z68.37 Body mass index [BMI] 37.0-37.9, adult; Z20.822 Contact with and (suspected) exposure to COVID-19; Z79.899 Other long term (current) drug therapy; Z98.890 Other specified postprocedural states; Z71.6 Tobacco abuse counseling
CPT/HCPCS: 96372 ×3; 96360; 96361; 99285; 36415; 93005; 97162; 97165; 80061; 80053 ×2; 80048; 84443; 83605; 83735; 84484 ×2; 85025 ×2; 85027; 85610; 85730; 81003; 83036; 87635; 73502; 73030; 71046; 70450; 70544; 70549; 70551; G0378 ×3; C8929; J3411; A9585; Q9950; J1644 ×2; 93306